=== PATIENT | male | born 1990 | race African-American/Black ===

== ENCOUNTER 2018-01-24 20:24 | Emergency (ER) | payer SELFPAY ==
[2018-01-24] MEDS: cefTRIAXone IM 250 MG VIAL IM (21:09)
[2018-01-24] MEDS: AZITHROMYCIN 250 MG TABLET. PO (21:09)
[2018-01-24] MEDS: metroNIDAZOLE 500 MG TABLET PO (21:10)
[2018-01-24 21:20] LABS: BILIRUBIN,URINE NEGATIVE (NEG); CLARITY,URINE CLOUDY; COLOR,URINE YELLOW; GLUCOSE,URINE NEGATIVE (NEG); NITRITE,URINE NEGATIVE (NEG); PH,URINE 5.5; PROTEIN,URINE NEGATIVE (NEG-TRACE)
[2018-01-24 21:27] LABS: BACTERIA,URINE FEW /HPF (0-FEW); RBC,URINE 0 /HPF (0-2); WBC,URINE TNTC /HPF (0-4)
[2018-01-24 21:28] LABS: SQUAMOUS EPITHELIAL CELL,UR OCC /LPF
== END 2018-01-24 21:22 | disposition home or self-care (01) ==
LOC: ER 21:22
DX: H10.022 Other mucopurulent conjunctivitis, left eye (principal); R30.0 Dysuria; B99.8 Other infectious disease
CPT/HCPCS: 81001; 87491; 87591; 96372; 99284; J0696; Q0144

== ENCOUNTER 2018-09-08 18:04 | Emergency (ER) | payer SELFPAY ==
[~2018-09-08] VITALS: Ht 185.4 cm; Wt 85.7 kg
[~2018-09-08 18:04] MED LIST: TOBR5DRO6 LEFTEYE
[2018-09-08 18:55] VITALS: BP 143/74
[2018-09-08] MEDS ORDERED: AZITHROMYCIN 250 MG TABLET. PO ONE (19:00)
[2018-09-08] MEDS ORDERED: cefTRIAXone IM 250 MG VIAL IM ONE (19:00)
--- NOTE | 2018-09-08 20:08 | PHYS DOC ---
Past Medical History Past Medical History: Other Additional Past Medical Histor: COMPARTMENT SYNDROME (THEO DE LA CRUZ APRN) Past Surgical History: Other Additional Past Surgical Histo: VASECTOMY, RIGHT ARM (THEO DE LA CRUZ APRN) Additional Information: 1/ PPD Alcohol Use: Occasionally Drug Use: None (THEO DE LA CRUZ APRN) Adult General Chief Complaint Chief Complaint: SEXUALLY TRANSMITTED DISEASE HPI HPI Patient is a 27 year old AA male who presents to the emergency department with need to be treated for STDs. Patient denies any dysuria, increased urinary frequency, irregular penile discharge, abdominal pain, or back pain. He states that his girlfriend tested positive for chlamydia and was treated 2 days ago. Patient denies any fever, nausea, vomiting, diarrhea, testicular pain, or testicular swelling. (THEO DE LA CRUZ APRN) Review of Systems Review of Systems Constitutional: Denies fever or chills [] GI: Denies abdominal pain, nausea, vomiting, or diarrhea [] : Denies dysuria or hematuria; see history of present illness Musculoskeletal: Denies back pain Integument: Denies rash or skin lesions [] Neurologic: Denies headache, focal weakness or sensory changes [] (THEO DE LA CRUZ APRN) Current Medications Current Medications Current Medications Medications (Trade) Dose Ordered Sig/Petty Start Time Stop Time Status Last Admin Dose Admin Azithromycin (Zithromax) 1,000 mg 1X ONCE 09/08/18 19:00 09/08/18 19:01 DC 09/08/18 19:15 1,000 MG Ceftriaxone Sodium (Rocephin Im) 250 mg 1X ONCE 09/08/18 19:00 09/08/18 19:01 DC 09/08/18 19:16 250 MG (ILA GUTIÉRREZ DO) Allergies Allergies Allergies Coded Allergies Type Severity Reaction Last Updated Verified No Known Drug Allergies 02/07/16 No (ILA GUTIÉRREZ DO) Physical Exam Physical Exam Constitutional: Well developed, well nourished, no acute distress, non-toxic appearance. [] HENT: Normocephalic, atraumatic, bilateral external ears normal, nose normal. [] Eyes: conjunctiva normal, no discharge. [] Neck: Normal range of motion, no stridor. [] Lungs & Thorax: Respirations even and unlabored, no retractions, no respiratory distress Skin: Warm, dry, no erythema, no rash. [] Extremities: No cyanosis, no clubbing, ROM intact Neurologic: Alert and oriented X 3, normal motor function, normal sensory function, no focal deficits noted. [] Psychologic: Affect normal, judgement normal, mood normal. [] (THEO DE LA CRUZ APRN) Current Patient Data Vital Signs Vital Signs Date Time Temp Pulse Resp B/P (MAP) Pulse Ox O2 Delivery O2 Flow Rate FiO2 09/08/18 18:55 97.9 79 16 143/74 (97) 99 Room Air 97.9 (ILA GUTIÉRREZ DO) Lab Values Laboratory Tests Test 09/08/18 19:10 Urine Chlamydia DNA (PCR) Negative (Negative) Neisseria gonorrhoeae DNA (PCR) Negative (Negative) (ILA GUTIÉRREZ DO) EKG EKG [] (THEO DE LA CRUZ APRN) Radiology/Procedures Radiology/Procedures [] (THEO DE LA CRUZ APRN) Course & Med Decision Making Course & Med Decision Making Pertinent Labs and Imaging studies reviewed. (See chart for details) Diagnosis: Suspected sexually transmitted infection Patient was treated prophylactically with 250 mg of IM Rocephin, and 1 g of PO Zithromax. Patient was instructed to avoid having intercourse until the results of gonorrhea and chlamydia testing were available, patient was notified that these results would not be available for 48 hours. If one or both of these tests is positive, patient needs to refrain from intercourse for approximately 2 weeks following the treatment of any current partners. [] (THEO DE LA CRUZ APRN) Dragon Disclaimer Dragon Disclaimer This electronic medical record was generated, in whole or in part, using a voice recognition dictation system. (THEO DE LA CRUZ APRN) Departure Departure Impression: Primary Impression: Contact with and (suspected) exposure to infections with a predominantly sexual mode of transmission Disposition: 01 HOME, SELF-CARE Condition: STABLE Referrals: ILA SHAH MD (PCP) Patient Instructions: Sexually Transmitted Disease, [id number] Additional Instructions: You have been treated today for a suspected sexually transmitted infection. You need to avoid having intercourse for the next 2 weeks. Your STD test results will not be back for 48 hours. Follow-up with your primary care doctor if symptoms persist, return to the ER symptoms worsen. Attending Signature Attending Signature I have reviewed the PA/COIL WINDER's note and plan of care. I was available for consultation as needed during the patient's visit in the emergency department. I agree with the clinical impression, plan, and disposition. (ILA GUTIÉRREZ DO) THEO DE LA CRUZ APRN Sep 08, 2018 20:08 ILA GUTIÉRREZ DO Sep 13, 2018 17:08
== END 2018-09-08 20:17 | disposition home or self-care (01) ==
LOC: ER 18:04
DX: Z20.2 Contact with and (suspected) exposure to infections with a predominantly sexual mode of transmission (principal); F17.200 Nicotine dependence, unspecified, uncomplicated; Z98.52 Vasectomy status
CPT/HCPCS: 87491; 87591; 96372; 99283; J0696; Q0144

== ENCOUNTER 2020-08-21 11:13 | Emergency (ER) | payer OTHER ==
[~2020-08-21] VITALS: Ht 185.4 cm; Wt 90.9 kg
[2020-08-21] MEDS ORDERED: IOHEXOL 300 MG/ML 100ML VIAL. IV ONE (11:45)
[2020-08-21] MEDS ORDERED: CONTRAST GIVEN. MC PRN (11:45)
[2020-08-21] MEDS ORDERED: IV NORMAL SALINE 1000ML BAG 1,000 ML IV ONE (11:45)
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
[2020-08-21 12:12] LABS: BASO % 0 % (0-3); EOS # 0.1 x10^3/uL (0.0-0.7); EOS % 1 % (0-3); HEMATOCRIT 52.4 % (39.0-53.0); HEMOGLOBIN 17.5 g/dL (13.0-17.5); LYMPH # 0.7 x10^3/uL (1.0-4.8); LYMPH % 7 % (24-48); MEAN CORPUSCULAR HEMOGLOBIN 30 pg (25-35); MEAN CORPUSCULAR HGB CONC 33 g/dL (31-37); MEAN CORPUSCULAR VOLUME 89 fL (79-100); MONO # 0.9 x10^3/uL (0.0-1.1); MONO % 9 % (0-9); NEUT # 8.2 x10^3/uL (1.8-7.7); NEUT % 84 % (31-73); PLATELET COUNT 294 x10^3/uL (140-400); RED BLOOD COUNT 5.92 x10^6/uL (4.30-5.70); RED CELL DISTRIBUTION WIDTH 15.3 % (11.5-14.5); WHITE BLOOD COUNT 9.8 x10^3/uL (4.0-11.0)
[2020-08-21] MEDS ORDERED: MORPHINE SULFATE 4 MG/ML VIAL. IV ONE (12:15)
[2020-08-21 13:21] LABS: CALCIUM 9.5 mg/dL (8.5-10.1); CREATININE 1.1 mg/dL (0.7-1.3); GFR 95.1; POTASSIUM 4.8 mmol/L (3.5-5.1)
[2020-08-21 13:32] LABS: ALBUMIN 3.6 g/dL (3.4-5.0); ALBUMIN/GLOBULIN RATIO 1.3 (1.0-1.7); TOTAL BILIRUBIN 0.4 mg/dL (0.2-1.0); TOTAL PROTEIN 6.4 g/dL (6.4-8.2)
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
[2020-08-21] MEDS ORDERED: KETOROLAC 30 MG/ML VIAL. IVP ONE (14:30)
[2020-08-21] MEDS ORDERED: NAPR-682 PO (14:42)
[2020-08-22] MEDS ORDERED: TOBR5DRO RIGHTEYE (09:53)
== END 2020-08-21 15:10 | disposition home or self-care (01) ==
LOC: ER 11:13
DX: S40.012A Contusion of left shoulder, initial encounter (principal); M25.512 Pain in left shoulder; M54.6 Pain in thoracic spine; M54.2 Cervicalgia; R07.89 Other chest pain; F17.200 Nicotine dependence, unspecified, uncomplicated; Z98.890 Other specified postprocedural states; Z90.89 Acquired absence of other organs; V49.9XXA Car occupant (driver) (passenger) injured in unspecified traffic accident, initial encounter; Y93.89 Activity, other specified; Y92.413 State road as the place of occurrence of the external cause; Y99.8 Other external cause status
CPT/HCPCS: 36415; 70450; 71260; 72125; 73030; 80053; 82550; 85025; 96361; 96374; 96375; 99285; G0480; J1885; J2270; J7030; Q9967

== ENCOUNTER 2020-08-22 08:47 | Emergency (ER) | payer OTHER ==
[~2020-08-22] VITALS: Ht 185.4 cm; Wt 100.0 kg
[~2020-08-22 08:47] MED LIST changes: +NAPR-682 PO
[2020-08-22 08:55] VITALS: BP 149/74
[2020-08-22] MEDS ORDERED: TOBR5DRO RIGHTEYE (09:53)
--- NOTE | 2020-08-22 09:54 | PHYS DOC ---
Past Medical History Past Medical History: Other Additional Past Medical Histor: COMPARTMENT SYNDROME Past Surgical History: Other Additional Past Surgical Histo: VASECTOMY, RIGHT ARM Smoking Status: Current Every Day Smoker Alcohol Use: Occasionally Drug Use: None General Adult EDM: Chief Complaint: EYE PROBLEMS HPI: HPI: Patient is a 29 year old male who presents to the ED today complaining of right eye redness that began today, he got discharged from [facility] today. Denies any vision loss. Denies any pain. Reports itching and drainage. Review of Systems: Review of Systems: Constitutional: Denies fever or chills. [] Eyes: Reports right eye redness and drainage. Denies change in visual acuity. [] Musculoskeletal: Denies back pain or joint pain. [] Integument: Denies rash. [] Neurologic: Denies headache, focal weakness or sensory changes. [] Psychiatric: Denies depression or anxiety. [] Heart Score: Risk Factors: Risk Factors: DM, Current or recent (<one month) smoker, HTN, HLP, family history of CAD, obesity. Risk Scores: Score 0 - 3: 2.5% MACE over next 6 weeks - Discharge Home Score 4 - 6: 20.3% MACE over next 6 weeks - Admit for Clinical Observation Score 7 - 10: 72.7% MACE over next 6 weeks - Early Invasive Strategies Allergies: Allergies: Allergies Coded Allergies Type Severity Reaction Last Updated Verified No Known Drug Allergies 02/07/16 No Physical Exam: PE: Constitutional: Well developed, well nourished, no acute distress, non-toxic appearance. [] Eyes: PERRLA, EOMI, right conjunctiva is slightly injected with trace yellow gordy inage and slight swelling over the right upper eyelid Skin: Warm, dry, no erythema, no rash. [] Back: No tenderness, no CVA tenderness. [] Extremities: No tenderness, no cyanosis, no clubbing, ROM intact, no edema. [] Neurologic: Alert and oriented X 3, normal motor function, normal sensory funct ion, no focal deficits noted. [] Psychologic: Affect normal, judgement normal, mood normal. [] EKG: EKG: [] Radiology/Procedures: Radiology/Procedures: [] Course & Med Decision Making: Course & Med Decision Making Pertinent Labs and Imaging studies reviewed. (See chart for details) This is a 29-year-old male patient presenting to the ED today with right bacterial conjunctivitis. Discharged on tobramycin. Good hand hygiene emphasized. Follow-up with tie man or primary care doctor in 1 to 2 weeks as needed. Provided return precautions Darling Disclaimer: Darling Disclaimer: This electronic medical record was generated, in whole or in part, using a voice recognition dictation system. Departure Departure Impression: Primary Impression: Acute bacterial conjunctivitis of right eye Disposition: DC HOME SELF CARE/HOMELESS Condition: STABLE Referrals: ILA SHAH MD (PCP) follow with your primary care doctor in 1-2 weeks Patient Instructions: Bacterial Conjunctivitis, [id number] Additional Instructions: You have infection to your right eye. Use the eyedrops ordered as prescribed. Maintain good and hygiene. Follow-up with your own doctor or an tie man in 1 to 2 weeks as needed Scripts Tobramycin (TOBREX) 5 Ml Drops 1 DROP RIGHTEYE Q4HRS, #5 ML Prov: JUDITH APONTE APRN 08/22/20 JUDITH APONTE APRN Aug 22, 2020 09:54
== END 2020-08-22 10:03 | disposition home or self-care (01) ==
LOC: ER 08:47
DX: H10.31 Unspecified acute conjunctivitis, right eye (principal); L29.9 Pruritus, unspecified; F17.200 Nicotine dependence, unspecified, uncomplicated; Z98.890 Other specified postprocedural states; Z90.89 Acquired absence of other organs
CPT/HCPCS: 99283